=== PATIENT | female | born 1975 | race African-American/Black ===

== ENCOUNTER 2016-05-11 15:27 | Emergency (ER) | payer MEDICARE, MEDICAID ==
[~2016-05-11] VITALS: Ht 175.3 cm; Wt 72.6 kg
[~2016-05-11 15:27] MED LIST changes: -TYLENOL EXTRA500 MG ORAL
[2016-05-11] MEDS ORDERED: Ketorolac 60mg Inj IM ONE (15:45)
[2016-05-11] MEDS ORDERED: Metoclopramide 10mg/2ml Inj IM ONE (15:45)
--- NOTE | 2016-05-11 16:22 | Emergency Room Report ---
History of Present Illness General Chief Complaint: Headache Present Illness HPI 40 YO female Pt. presents to the ED c/o progressive WALSH throbbing in nature to the left frontal area 9/10 in severity, denies photophobia, nausea, vomiting. Increased anxiety due to pain. Pt states hx of migraines in the past, and that this pain is similar. Denies being prescribed medications for migraines. Pt states she has a hx of anxiety and is usually prescribed xanax. Pt. denies taking medication for her pain today.Pt reports that she has hx of seizures. last seizure was the end of March, pt. just had her neurology f/u this am where EEG was performed just prior to onset of WALSH. Pt. states she wont have her results back for a few days. Denies neck pain/stiffness or recent illness/URI. denies dysuria, frequency, or , pt states she had hysterectomy. Denies CP, Palpitations, LOC, AMS, dizziness, Changes in Vision, Sensation, paresthesias, or a sudden severe headache. Allergies: Coded Allergies: No Known Allergies (Verified , 12/27/06) Patient History Past Medical History: see triage record Past Surgical History: none Pertinent Family History: none Last Menstrual Period: HYSTERECTOMY Now: No Immunizations: UTD Reviewed Nursing Documentation: PMH: Agreed, PSxH: Agreed Nursing Documentation-PMH Past Medical History: No History, Except For Hx Cardiac Problems: No - MENINGITIS, HYSTERECTOMY History Of Psychiatric Problem: Yes - ANXIETY Hx Seizures: Yes Review of Systems All Other Systems: negative except mentioned in HPI Physical Exam Vital Signs Date Time Temp Pulse Resp B/P Pulse Ox O2 Delivery O2 Flow Rate FiO2 05/11/16 15:25 98.1 89 16 110/70 99 Sp02 EP Interpretation: reviewed, normal General Appearance: no apparent distress, alert, GCS 15, non-toxic Head: normocephalic, atraumatic Eyes: bilateral eye PERRL, bilateral eye normal inspection ENT: hearing grossly normal, normal pharynx, no angioedema, normal voice Neck: full range of motion, no meningismus, no bony tend, supple/symm/no masses Respiratory: chest non-tender, lungs clear, normal breath sounds, speaking full sentences Cardiovascular #1: regular rate, rhythm, no edema, normal capillary refill Rectal: deferred Genitourinary: normal inspection, no CVA tenderness Musculoskeletal: back normal, gait/station normal, normal range of motion, non- tender, no calf tenderness Neurologic: alert, oriented x3, responsive, motor strength/tone normal, sensory intact, cerebellar normal, normal gait, speech normal, other - negative hoffmans, no pronator drift, no facial droop. Psychiatric: judgement/insight normal, memory normal, mood/affect normal, no suicidal/homicidal ideation Reflexes: 4+ bicep (R), 4+ bicep (L), 4+ tricep (R), 4+ tricep (L), 4+ knee (R) , 4+ knee (L) Skin: normal color, no rash, warm/dry, well hydrated Lymphatic: no adenopathy Medical Decision Making PA Attestation Dr. Salvador is my supervising Physician whom patient management has been discussed with. Diagnostic Impression: Primary Impression: Headache Qualified Codes: R51 - Headache ER Course Pt. presents to the ED c/o progressive WALSH throbbing in nature to the left frontal area, denies photophobia, nausea, vomiting. Increased anxiety due to pain. Pt states hx of migraines in the past, and that this pain is similar. - has hx of seizures. last seizure was the end of march, pt. just had her neurology f/u this am where EEG was performed just prior to onset of WALSH. Ddx considered but are not limited to migraine, SAH, Psedudo motor Cerebri, Mass lesion, Cluster WALSH, Tension WALSH, Post lumbar puncture WALSH. Vital signs: are WNL, pt. is afebrile H&PE are most consistent with headache, unknown cause, not intractable. no evidence of focal neurological deficit, WALSH was progressive onset and similar in nature to WALSH's in the past. ORDERS: none required at this time. ED INTERVENTIONS: - IM Reglan -IM Toradol -0.5 Ativan -upon re-evaluation, pt. states her pain has subsided with above interventions. -d/w pt. need for follow up with her neurologist, and to discuss recent visit to ED for WALSH. DISCHARGE: At this time pt. is stable for d/c to home. Will provide printed patient care instructions, and any necessary prescriptions. Care plan and follow up instructions have been discussed with the patient prior to discharge. Last Vital Signs Date Time Temp Pulse Resp B/P Pulse Ox O2 Delivery O2 Flow Rate FiO2 1/17/17 15:25 98.1 89 16 110/70 99 Disposition: HOME, SELF-CARE Condition: Stable Scripts Acetaminophen* (TYLENOL EXTRA STRENGTH*) 500 Mg Tablet 500 MG ORAL Q8H, #30 TAB 0 Refills Prov: Vita Martinez 05/11/16 Patient Instructions: General Headache Without Cause Additional Instructions: Take medications as directed. Follow up with PCP and Neurologist in 3-5 days Return sooner to ED if new symptoms occur, or current symptoms become worse. Vita Martinez May 11, 2016 16:22
[2016-05-11] MEDS ORDERED: LORazepam 0.5mg tab ORAL ONE (16:30)
[2016-05-11] MEDS ORDERED: TYLENOL EXTRA500 MG ORAL (16:37)
[2016-05-11 16:58] VITALS: BP 110/70
--- NOTE | 2016-05-11 20:37 | Electroencephalogram ---
DATE OF PROCEDURE: 05/11/2016 ELECTROENCEPHALOGRAM REPORT HISTORY: The patient is a 40-year-old female with a history of transient unresponsiveness treated with Xanax and Prozac. TECHNIQUE: EEG was done using 18 electrodes placed scalp to scalp, scalp to ear montages according to 10/20 International System. In most wakeful portions of recording after stimulation, background consists of a medium to high voltage 9 to 10 cycles per second alpha activity with significantly override it fast or low voltage beta activities. In the drowsy state, there was poorly defined low voltage theta activities ranging 5 to 7 hertz, more evident in the posterior and occipital region. Diffusely override it by fast or low voltage beta activities bilaterally. Photic stimulation from 3 to 32 hertz was no significant changes. Hyperventilation was obtained, resulting in slow-wave prevalence in the posterior and occipital region bilaterally. IMPRESSION: Normal awake and stage 1 sleep electroencephalogram with photic stimulation and hyperventilation. COMMENT: 1. Absence of paroxysmal event on a single recording does not rule out seizure disorder. 2. Prevalence of her beta activities may represent a normal version of electroencephalogram in the presence of benzodiazepines. Dudley Reyes M.D. DR: AVA JOB#: [id number] CC:
== END 2016-05-11 17:00 | disposition home or self-care (01) ==
LOC: EDBD 15:27 → EMR 15:55
DX: R51 Headache (principal); F41.9 Anxiety disorder, unspecified; Z86.61 Personal history of infections of the central nervous system; Z90.710 Acquired absence of both cervix and uterus
CPT/HCPCS: 96372; 99283; J2765

== ENCOUNTER → 2016-05-11 | Outpatient (CLI) | payer MEDICARE, MEDICAID ==
[~2016-05-11] MED LIST: CYCLOBENZAPRINE10 MG ORAL; IBUPROFEN600 MG ORAL; NORCO 5-325 TA1 EAC1 ORAL; PROZAC10 MG ORAL; TYLENOL EXTRA500 MG ORAL; XANAX1 MG ORAL
== END | disposition home or self-care (01) ==
LOC: CAR 08:20
DX: G40.909 Epilepsy, unspecified, not intractable, without status epilepticus (principal)
CPT/HCPCS: 95819

== ENCOUNTER 2018-10-24 14:02 | Emergency (ER) | payer MEDICAID, MEDICARE, OTHER ==
[~2018-10-24] VITALS: Ht 175.3 cm; Wt 116.1 kg
[~2018-10-24 14:02] MED LIST changes: +TYLENOL EXTRA500 MG ORAL
[2018-10-24] MEDS ORDERED: SEROQUEL100 MG ORAL (14:09)
[2018-10-24] MEDS ORDERED: Tylenol #3 tab (300mg/30mg) ORAL ONE (14:45)
[2018-10-24] MEDS ORDERED: Augmentin 875mg Tab ORAL ONE (14:45)
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
[2018-10-24] MEDS ORDERED: IBUPROFEN600 MG ORAL (14:56)
[2018-10-24] MEDS ORDERED: AUGMENTIN 875-1 EAC1 ORAL (14:56)
[2018-10-24 15:05] VITALS: BP_SYST 131; BP_SYST 134; BP_DIAS 71; BP_DIAS 74
--- NOTE | 2018-10-24 15:20 | Diagnostic Imaging Report ---
Indication: left hand pain. Comparison: None Findings: 3 views of the left hand were obtained. Normal alignment is demonstrated. No acute fractures, erosions, or periosteal reaction are seen. Soft tissues are unremarkable. Impression: No acute findings.
== END 2018-10-24 15:05 | disposition home or self-care (01) ==
LOC: EMR 14:40
DX: S63.635A Sprain of interphalangeal joint of left ring finger, initial encounter (principal); S61.255A Open bite of left ring finger without damage to nail, initial encounter; Y09 Assault by unspecified means; Z90.710 Acquired absence of both cervix and uterus; E78.00 Pure hypercholesterolemia, unspecified; G40.909 Epilepsy, unspecified, not intractable, without status epilepticus
CPT/HCPCS: 29130; 99283

== ENCOUNTER 2018-11-27 11:20 | Emergency (ER) | payer MEDICARE ==
[~2018-11-27] VITALS: Ht 172.7 cm; Wt 115.7 kg
[~2018-11-27 11:20] MED LIST changes: +AUGMENTIN 875-1 EAC1 ORAL; +SEROQUEL100 MG ORAL
[2018-11-27 11:24] VITALS: BP 126/78
--- NOTE | 2018-11-27 11:26 | NUR ---
ED Nurse Note: pt was brought in by ambulance from home c/o headache blurred vision on the right eye. pt stated she slipped and fall 5 days ago and hit her head. pt able to answer all questions. pt stated she is a little bit dizzy. with vital signs within normal limit. will continue to monitor.
--- NOTE | 2018-11-27 11:50 | Emergency Room Report ---
History of Present Illness General Chief Complaint: Headache Source: Patient, EMS Present Illness HPI Patient is a 43-year-old female presented after persistent headache after a fall. Patient reports having fallen naproxen 5 days ago. She states she slipped on a wet floor. She is reports having hit the back of her head. She denies any vomiting since the injury. She denies any neck pain. She reports having prior history of bronchitis. She denies taking any blood thinners. She denies any weakness to her extremities. She denies other locations of injury other than her head. Patient was brought in by EMS. Allergies: Coded Allergies: MORPHINE (Unverified Allergy, Unknown, 11/27/18) Patient History Past Medical History: see triage record, psych hx Last Menstrual Period: 2003 Now: No Reviewed Nursing Documentation: PMH: Agreed; PSxH: Agreed Nursing Documentation-PMH Hx Cardiac Problems: No - MENINGITIS, HYSTERECTOMY, high cholesterol History Of Psychiatric Problem: Yes - anxiety Hx Seizures: Yes Review of Systems All Other Systems: negative except mentioned in HPI Physical Exam Vital Signs Date Time Temp Pulse Resp B/P (MAP) Pulse Ox O2 Delivery O2 Flow Rate FiO2 11/27/18 11:19 98.2 75 16 126/78 (94) 98 Room Air General Appearance: alert, GCS 15, obese, Chronically Ill Head: other - occipital soft tissue swelling Eyes: bilateral eye PERRL ENT: hearing grossly normal, normal voice Neck: full range of motion Respiratory: wheezing Cardiovascular #1: normal peripheral pulses, regular rate, rhythm, no edema Gastrointestinal: normal inspection, soft Musculoskeletal: normal inspection, back normal, digits/nails normal Neurologic: normal inspection, alert, oriented x3, responsive, hog driver III-XII nml as tested Psychiatric: normal inspection Medical Decision Making Diagnostic Impression: Primary Impression: Head contusion Additional Impression: Head injury ER Course Patient presented for head injury. Differential diagnosis include included but was not limited to fracture, subdural hematoma, contusion, head injury among others. CT imaging of the head was ordered to the patient's recent fall. CT showed atrophic changes without evident intracranial hemorrhage or fracture. Patient appears to be stable for discharge. She was given medications for discomfort. She advised to follow-up with her primary care physician for recheck. She is to return if worse. Labs Test 11/27/18 11:57 White Blood Count 3.9 K/UL (4.8-10.8) Red Blood Count 4.35 M/UL (4.20-5.40) Hemoglobin 12.3 G/DL (12.0-16.0) Hematocrit 39.7 % (37.0-47.0) Mean Corpuscular Volume 91 FL (80-99) Mean Corpuscular Hemoglobin 28.1 PG (27.0-31.0) Mean Corpuscular Hemoglobin Concent 30.8 G/DL (32.0-36.0) Red Cell Distribution Width 13.0 % (11.6-14.8) Platelet Count 210 K/UL (150-450) Mean Platelet Volume 7.2 FL (6.5-10.1) Neutrophils (%) (Auto) 49.7 % (45.0-75.0) Lymphocytes (%) (Auto) 36.2 % (20.0-45.0) Monocytes (%) (Auto) 12.8 % (1.0-10.0) Eosinophils (%) (Auto) 0.3 % (0.0-3.0) Basophils (%) (Auto) 1.0 % (0.0-2.0) Prothrombin Time 10.7 SEC (9.30-11.50) Prothromb Time International Ratio 1.0 (0.9-1.1) Activated Partial Thromboplast Time 31 SEC (23-33) Urine Color Yellow Urine Appearance Clear Urine pH 6 (4.5-8.0) Urine Specific Lando 1.020 (1.005-1.035) Urine Protein 2+ (NEGATIVE) Urine Glucose (UA) Negative (NEGATIVE) Urine Ketones 1+ (NEGATIVE) Urine Blood 4+ (NEGATIVE) Urine Nitrite Negative (NEGATIVE) Urine Bilirubin Negative (NEGATIVE) Urine Urobilinogen Normal MG/DL (0.0-1.0) Urine Leukocyte Esterase 2+ (NEGATIVE) Urine RBC 2-4 /HPF (0 - 2) Urine WBC 2-4 /HPF (0 - 2) Urine Squamous Epithelial Cells Few /LPF (NONE/OCC) Urine Bacteria Few /HPF (NONE) Urine HCG, Qualitative Negative (NEGATIVE) Sodium Level 140 MMOL/L (136-145) Potassium Level 4.2 MMOL/L (3.5-5.1) Chloride Level 105 MMOL/L (98-107) Carbon Dioxide Level 25 MMOL/L (21-32) Anion Gap 11 mmol/L (5-15) Blood Urea Nitrogen 16 mg/dL (7-18) Creatinine 0.8 MG/DL (0.55-1.30) Estimat Glomerular Filtration Rate > 60 mL/min (>60) Glucose Level 101 MG/DL (74-106) Calcium Level 9.3 MG/DL (8.5-10.1) Total Bilirubin 0.4 MG/DL (0.2-1.0) Aspartate Amino Transf (AST/SGOT) 63 U/L (15-37) Alanine Aminotransferase (ALT/SGPT) 63 U/L (12-78) Alkaline Phosphatase 105 U/L (46-116) Total Protein 8.3 G/DL (6.4-8.2) Albumin 4.2 G/DL (3.4-5.0) Globulin 4.1 g/dL Albumin/Globulin Ratio 1.0 (1.0-2.7) Last Vital Signs Date Time Temp Pulse Resp B/P (MAP) Pulse Ox O2 Delivery O2 Flow Rate FiO2 11/27/18 11:24 98.2 75 16 126/78 98 Room Air Status: improved Disposition: HOME, SELF-CARE Condition: Stable Scripts Acetaminophen* (ACETAMINOPHEN EXTRA STRENGTH*) 500 Mg Tablet 500 MG ORAL Q8H PRN for Fever/Headache/Mild Pain, #30 TAB Prov: Marquis Salvador MD 11/27/18 Marquis Salvador MD Nov 27, 2018 11:50
[2018-11-27] MEDS ORDERED: Albuterol/Ipratropium 3ml neb HHN ONE (12:00)
[2018-11-27 12:05] LABS: APPEARANCE,URINE CLEAR; BILIRUBIN, URINE NEGATIVE (NEGATIVE); EOSINOPHILS % (AUTO) 0.3 % (0.0-3.0); GLUCOSE, URINE (UA) NEGATIVE (NEGATIVE); HEMATOCRIT 39.7 % (37.0-47.0); HEMOGLOBIN 12.3 G/DL (12.0-16.0); KETONES,URINE 1+ (NEGATIVE); LEUKOCYTE ESTERASE ,URINE 2+ (NEGATIVE); LYMPHOCYTES % (AUTO) 36.2 % (20.0-45.0); MEAN CORPUSCULAR VOLUME 91 FL (80-99); MONOCYTES % (AUTO) 12.8 % (1.0-10.0); NEUTROPHILS % (AUTO) 49.7 % (45.0-75.0); NITRITE,URINE NEGATIVE (NEGATIVE); PH,URINE 6 (4.5-8.0); PLATELET COUNT 210 K/UL (150-450); PROTEIN,URINE 2+ (NEGATIVE); RED BLOOD COUNT 4.35 M/UL (4.20-5.40); UROBILINOGEN,URINE NORMAL MG/DL (0.0-1.0); WHITE BLOOD COUNT 3.9 K/UL (4.8-10.8)
--- NOTE | 2018-11-27 12:06 | NUR ---
ED Nurse Note: Applied ice pack on the posterior head and keep patient NPO until CT results as ordered. Patient is receiving breathing tx.
[2018-11-27 12:14] LABS: COLOR,URINE YELLOW
--- NOTE | 2018-11-27 12:15 | NUR ---
ED Nurse Note: patient is taken down to CT scan
[2018-11-27 12:17] LABS: ANION GAP 11 mmol/L (5-15); BLOOD UREA NITROGEN 16 mg/dL (7-18); CALCIUM 9.3 MG/DL (8.5-10.1); CARBON DIOXIDE 25 MMOL/L (21-32); CHLORIDE 105 MMOL/L (98-107); CREATININE 0.8 MG/DL (0.55-1.30); POTASSIUM 4.2 MMOL/L (3.5-5.1); SODIUM 140 MMOL/L (136-145)
[2018-11-27 12:22] LABS: ALANINE AMINOTRANSFERASE 63 U/L (12-78); ALBUMIN 4.2 G/DL (3.4-5.0); ALKALINE PHOSPHATASE 105 U/L (46-116); ASPARTATE AMINO TRANSFERASE 63 U/L (15-37); BILIRUBIN,TOTAL 0.4 MG/DL (0.2-1.0)
--- NOTE | 2018-11-27 12:38 | NUR ---
ED Nurse Note: patient came back from CT
[2018-11-27] MEDS ORDERED: ACETAMINOPHEN500 M3 ORAL (12:44)
[2018-11-27] MEDS ORDERED: Acetaminophen 500mg (ES) tab ORAL ONE (12:45)
--- NOTE | 2018-11-27 13:12 | Diagnostic Imaging Report ---
Indication: Headache Technique: Contiguous 5 mm thick transaxial imaging of the head obtained in a Siemens Sensation [address] scanner. Soft tissue and bone windows generated. Automatic Exposure Control was utilized. Total Dose length Product (DLP): 1485.[address] Dose Index Volume (CTDIvol): 70.38 mGy Comparison: none Findings: The size and configuration of the cortical sulci, basal cisterns, and ventricles are within normal limits for age. There is no mass effect, midline shift, or edema identified. There is no evidence of acute hemorrhage or abnormal intra-axial or extra-axial fluid collections. The bones and soft tissues are unremarkable. There is mucosal thickening within the visualized paranasal sinuses consistent with mild sinusitis. Impression: No mass effect, edema or acute bleed. Sinusitis The CT scanner at [facility] is accredited by the [employer] and the scans are performed using dose optimization techniques as appropriate to a performed exam including Automatic Exposure control.
[2018-11-27 13:29] VITALS: BP 126/78
--- NOTE | 2018-11-27 13:29 | NUR ---
ER DISCHARGE NOTE: Patient is cleared to be discharged per CLAIRE CARRILLO , pt is aox4, on room air, with stable vital signs. pt was given dc and prescription instructions, pt was able to verbalize understanding, pt id band and iv site removed without complications. pt is able to ambulate with steady gait. pt took all belongings.
== END 2018-11-27 13:29 | disposition home or self-care (01) ==
LOC: EDBD 11:20 → EMR 12:17
DX: S00.93XA Contusion of unspecified part of head, initial encounter (principal); S09.90XA Unspecified injury of head, initial encounter; E66.9 Obesity, unspecified; Z90.710 Acquired absence of both cervix and uterus; F41.9 Anxiety disorder, unspecified; E78.00 Pure hypercholesterolemia, unspecified; G40.909 Epilepsy, unspecified, not intractable, without status epilepticus; Z88.6 Allergy status to analgesic agent; W01.0XXA Fall on same level from slipping, tripping and stumbling without subsequent striking against object, initial encounter; Y92.9 Unspecified place or not applicable
CPT/HCPCS: 36415; 70450; 80053; 81001; 81025; 85025; 85610; 85730; 94640; 94664; 96374; 99284; J0780; J7620

== ENCOUNTER 2019-06-25 19:16 | Emergency (ER) | payer MEDICARE ==
[~2019-06-25] VITALS: Ht 172.7 cm; Wt 113.4 kg
[~2019-06-25 19:16] MED LIST changes: +ACETAMINOPHEN500 M3 ORAL; +PREDNISONE20 MG ORAL
[2019-06-25 19:33] VITALS: BP 123/77
--- NOTE | 2019-06-25 19:34 | NUR ---
ER Nurse Note: Pt brought in by ambulnace from home c/o lower back pain since 20 days. Per EMS, pt fell in her kitchen 20 days ago and pain has been getting worse. Pt stated she has an appoinement to her PCP on 06/27 but pain is severe. Pt able to walk; urine provided. Will continue to [facility]. Addendum: 06/25/19 at 1945 by BRONWYN ER Nurse Note: Pt stated she fell in her bathtub on the 06/10. Pt stated her lower back is swollen and has 10/10. Pt has a referal to see a PT but has not gone yet.
--- NOTE | 2019-06-25 19:58 | Emergency Room Report ---
History of Present Illness General Chief Complaint: Lower Back Pain or Injury Present Illness HPI Patient is a 39-year-old female presents after increased low back pain. Patient reports having recent fall approximately 2 weeks prior to arrival. She had been reportedly seeing physical therapy and had prior history of back pain in the past. She states she was try to get of the tub when she fell onto her buttocks and subsequently had increased pain to the area. She had been taking ibuprofen. Denies any loss of consciousness. Allergies: Coded Allergies: MORPHINE (Unverified Allergy, Unknown, 11/27/18) PENICILLINS (Verified Allergy, Unknown, 04/23/19) Uncoded Allergies: MORPHIME (Allergy, Unknown, 06/25/19) PCN (Allergy, Unknown, 06/25/19) Patient History Past Medical History: see triage record Reviewed Nursing Documentation: PMH: Agreed; PSxH: Agreed Nursing Documentation-PMH Hx Asthma: Yes Hx Seizures: Yes Review of Systems All Other Systems: negative except mentioned in HPI Physical Exam Vital Signs Date Time Temp Pulse Resp B/P (MAP) Pulse Ox O2 Delivery O2 Flow Rate FiO2 06/25/19 19:11 98.2 87 19 123/77 (92) 100 Sp02 EP Interpretation: reviewed, normal General Appearance: normal inspection, well appearing, no apparent distress, alert, GCS 15, non-toxic Head: atraumatic ENT: normal ENT inspection, hearing grossly normal, normal voice Neck: normal inspection, full range of motion, supple, no bony tend Respiratory: normal inspection, lungs clear, normal breath sounds, no respiratory distress, no retraction, no wheezing Cardiovascular #1: regular rate, rhythm, no edema Gastrointestinal: normal inspection, normal bowel sounds, non tender, soft, no guarding, no hernia Genitourinary: no CVA tenderness Musculoskeletal: normal inspection, back normal, normal range of motion Neurologic: alert, motor strength/tone normal, airworthiness safety inspector III-XII nml as tested, responsive, speech normal, normal inspection Psychiatric: normal inspection, judgement/insight normal, mood/affect normal Medical Decision Making Diagnostic Impression: Primary Impression: Chronic pain Additional Impression: Low back pain ER Course Patient presented for low back pain. Differential diagnosis includes not limited to fracture, contusion, herniated disc among others. X-ray imaging was ordered given the patient's recent trauma. She had multiple prior visits for various complaints of pain. Patient was given prescription for medications for symptomatic treatment. X-ray imaging read by radiology showed no evidence of acute fracture or malalignment. The patient is advised to follow up with primary care doctor in 1-2 days. Patient is advised to return if any worsening condition or if any changes in status that are concerning. This report is dictated with [employer] offbearer software which may occasionally lead to discrepancies related to use of this software. Labs Test 06/25/19 19:35 Urine Color Pale yellow Urine Appearance Clear Urine pH 7 (4.5-8.0) Urine Specific Ridge 1.010 (1.005-1.035) Urine Protein Negative (NEGATIVE) Urine Glucose (UA) Negative (NEGATIVE) Urine Ketones Negative (NEGATIVE) Urine Blood Negative (NEGATIVE) Urine Nitrite Negative (NEGATIVE) Urine Bilirubin Negative (NEGATIVE) Urine Urobilinogen Normal MG/DL (0.0-1.0) Urine Leukocyte Esterase Negative (NEGATIVE) Urine HCG, Qualitative Negative (NEGATIVE) Last Vital Signs Date Time Temp Pulse Resp B/P (MAP) Pulse Ox O2 Delivery O2 Flow Rate FiO2 06/25/19 19:33 98.2 83 19 123/77 100 Status: improved Disposition: HOME, SELF-CARE Condition: Stable Scripts Methocarbamol* (ROBAXIN-500*) 500 Mg Tablet 500 MG ORAL TID PRN for For Pain, #15 TAB 0 Refills Prov: Marquis Salvador MD 06/25/19 Marquis Salvador MD Jun 25, 2019 19:58
[2019-06-25] MEDS ORDERED: Ketorolac 30mg Inj IM ONE (20:00)
[2019-06-25 20:23] LABS: APPEARANCE,URINE CLEAR; BILIRUBIN, URINE NEGATIVE (NEGATIVE); COLOR,URINE PALE YELLOW; GLUCOSE, URINE (UA) NEGATIVE (NEGATIVE); KETONES,URINE NEGATIVE (NEGATIVE); LEUKOCYTE ESTERASE ,URINE NEGATIVE (NEGATIVE); NITRITE,URINE NEGATIVE (NEGATIVE); PH,URINE 7 (4.5-8.0); PROTEIN,URINE NEGATIVE (NEGATIVE); UROBILINOGEN,URINE NORMAL MG/DL (0.0-1.0)
[2019-06-25] MEDS ORDERED: ROBAXIN-500MG ORAL (20:23)
[2019-06-25 21:00] VITALS: BP 126/74
--- NOTE | 2019-06-25 21:00 | NUR ---
ED Nurse Note: All orders completed per ERMD orders. Pt cleared by health care Provider for discharge. DC instructions/prescription was given and explained to pt and verbalized understanding of teachings. Instructed pt to follow up with primary care physcian within one week. All medical deviecs such as ID band removed. Pt is AAO x4, ambulatory and left with all personal belongings.
--- NOTE | 2019-06-26 12:25 | Diagnostic Imaging Report ---
Indication: Back pain Comparison: None Findings: 3 views of the lumbar spine were obtained. No acute fracture or malalignment is identified. Vertebral body heights and disk spaces are well maintained. Posterior elements are unremarkable. Impression: No acute findings.
== END 2019-06-25 21:00 | disposition home or self-care (01) ==
LOC: EDBD 19:16 → EMR 19:25
DX: M54.5 Low back pain (principal); Z88.6 Allergy status to analgesic agent; Z88.0 Allergy status to penicillin
CPT/HCPCS: 72020; 81003; 81025; 96372; 99283; J1885

== ENCOUNTER 2019-08-05 17:52 | Emergency (ER) | payer MEDICARE ==
[~2019-08-05] VITALS: Ht 175.3 cm; Wt 113.4 kg
[~2019-08-05 17:52] MED LIST changes: +ROBAXIN-500MG ORAL
--- NOTE | 2019-08-05 17:52 | NUR ---
ED Nurse Note: Pt brought in by [id number] for behavioral complaint. Per EMS report pt feels depressed during holidays. pt also reports bodyaches with nausea and fever last night. pt is afebrile at this time.
[2019-08-05 17:55] VITALS: BP 120/75
--- NOTE | 2019-08-05 18:12 | NUR ---
ED Nurse Note: blood and urine sample sent down to lab
--- NOTE | 2019-08-05 18:15 | NUR ---
ED Nurse Note: pt's belongiongs in locker #3
--- NOTE | 2019-08-05 18:21 | NUR ---
ED Nurse Note: cxr being done at bedside
[2019-08-05 18:22] LABS: BASOPHILS % (AUTO) 0.7 % (0.0-2.0); EOSINOPHILS % (AUTO) 0.2 % (0.0-3.0); HEMATOCRIT 44.8 % (37.0-47.0); LYMPHOCYTES % (AUTO) 40.1 % (20.0-45.0); MEAN CORPUSCULAR VOLUME 92 FL (80-99); MONOCYTES % (AUTO) 5.6 % (1.0-10.0); NEUTROPHILS % (AUTO) 53.4 % (45.0-75.0); PLATELET COUNT 272 K/UL (150-450); RED BLOOD COUNT 4.85 M/UL (4.20-5.40); RED CELL DISTRIBUTION WIDTH 14.7 % (11.6-14.8); WHITE BLOOD COUNT 6.3 K/UL (4.8-10.8)
--- NOTE | 2019-08-05 18:26 | NUR ---
ED Nurse Note: pt is talkative, does not appear to be withdrawn. will continue to monitor.
--- NOTE | 2019-08-05 18:29 | Emergency Room Report ---
History of Present Illness General Chief Complaint: Behavioral Complaint Source: Medical Record, EMS Present Illness HPI 43 YO Female presents to the ED c/o running out of her psychiatric medications cold-turkey at home and unable to fill them until the . Pt. reports she began having SI with idea to hurt herself with a hatchet. Pt. reports one PSA in 1994 where she OD'd on Xanax. She reports one previous psychiatric hospitalization that was voluntary at [facility] in 1995. Pt. reports recent drug use last week using cocaine. She reports hx of MS and is stating she has 6/ 10 in severity pain/tenderness in the left hip/thigh. She reports recently having URI symptoms with cough that her PCP evaluated her over the phone and rx' d her Promethazine w. Codeine which resolved her symptoms. Pt. reports cough has not returned. She denies CP, Fevers, Chills, N/V/C/D. Denies recent travel. Denies contact with persons who have tested positive for or are under investigation/quarantine for COVID-19. She denies hallucinations. She reports she takes Seroquel and Lexapro and ran out of both 4 days ago. She denies SOB, palpitations, Paresthesias, dizziness, WALSH, or weakness. Allergies: Coded Allergies: MORPHINE (Unverified Allergy, Unknown, 11/27/18) PENICILLINS (Verified Allergy, Unknown, 04/23/19) Uncoded Allergies: MORPHIME (Allergy, Unknown, 06/25/19) PCN (Allergy, Unknown, 06/25/19) COVID-19 Screening Contact w/high risk pt: No Recent Travel to affected area: No Experienced COVID-19 symptoms?: Yes COVID-19 symptoms experienced: Fever (T>100.4F or >38C) Patient History Past Medical History: psych hx - Depression, 1 PSA, other - MS Past Surgical History: none Pertinent Family History: none Now: No Reviewed Nursing Documentation: PMH: Agreed; PSxH: Agreed Nursing Documentation-PMH Hx Hypertension: Yes Hx Asthma: Yes Hx Seizures: Yes Review of Systems All Other Systems: negative except mentioned in HPI Physical Exam Vital Signs Date Time Temp Pulse Resp B/P (MAP) Pulse Ox O2 Delivery O2 Flow Rate FiO2 08/05/19 17:48 98.1 81 18 114/78 (90) 97 Room Air Sp02 EP Interpretation: reviewed, normal General Appearance: no apparent distress, alert, GCS 15, non-toxic Head: normocephalic, atraumatic Eyes: bilateral eye normal inspection, bilateral eye PERRL ENT: hearing grossly normal, normal voice Neck: full range of motion Respiratory: chest non-tender, lungs clear, normal breath sounds, no respiratory distress, no accessory muscle use, no wheezing, speaking full sentences Cardiovascular #1: regular rate, rhythm, no edema, normal capillary refill Gastrointestinal: normal bowel sounds, non tender, soft Musculoskeletal: back normal, normal range of motion, gait/station normal, tender - TTP To the left thigh, no erythema or warmth, FROM of hip. Neurologic: alert, motor strength/tone normal, oriented x3, sensory intact, responsive, speech normal Psychiatric: judgement/insight normal, memory normal, depressed affect - with SI. Suicide Risk Assessment: Suicidal Ideation: Yes Had intent to initiate attempt: Yes Pt's plan for suicide attempt: Yes Has means to complete attempt: Yes Skin: normal color, normal inspection Medical Decision Making PA Attestation Dr. Carcamo is my supervising Physician whom patient management has been discussed with. Diagnostic Impression: Primary Impression: Behavioral disorder ER Course Pt. presents to the ED with s/sx c/w URI in the setting of a local COVID-19 Outbreak. - This PT. was c/o Signs and Symptoms that are c/w possible COVID-19 infection, therefore treated as such. - Full PPE for airborne/droplet isolation (booties, Gown, doubled nitrile gloves, N95 Mask covered by Surgical mask w. face shield, and hair net) was donned prior to pt. interaction. 43 YO Female presents to the ED c/o running out of her psychiatric medications cold-turkey at home and unable to fill them until the . Pt. reports she began having SI with idea to hurt herself with a hatchet. Pt. reports one PSA in 1994 where she OD'd on Xanax. She reports one previous psychiatric hospitalization that was voluntary at [facility] in 1995. Pt. reports recent drug use last week using cocaine. She reports hx of MS and is stating she has 6/ 10 in severity pain/tenderness in the left hip/thigh. She reports recently having URI symptoms with cough that her PCP evaluated her over the phone and rx' d her Promethazine w. Codeine which resolved her symptoms. Pt. reports cough has not returned. She denies CP, Fevers, Chills, N/V/C/D. Denies recent travel. Denies contact with persons who have tested positive for or are under investigation/quarantine for COVID-19. She denies hallucinations. She reports she takes Seroquel and Lexapro and ran out of both 4 days ago. She denies SOB, palpitations, Paresthesias, dizziness, WALSH, or weakness. Ddx considered but are not limited to OD, SI/HI, psychosis, UTI, intoxication Vital signs: are WNL, pt. is afebrile H&PE are most consistent with behavioral/mental health issue ORDERS: -CBC, CMP: WNL -UA: negative for infection see results attached. -Urine Hcg: Negative -UDS: POSITIVE FOR BENZO and COCAINE -Salicylates and Acetaminophen - no acute intoxication. -Serum ETOH: 195 CXR: WNL ED INTERVENTIONS: - 10mg Lexapro PO DISPOSITION: PT. signed out to on-coming Physician pending medical clearance Labs Test 08/05/19 18:15 White Blood Count 6.3 K/UL (4.8-10.8) Red Blood Count 4.85 M/UL (4.20-5.40) Hemoglobin 14.0 G/DL (12.0-16.0) Hematocrit 44.8 % (37.0-47.0) Mean Corpuscular Volume 92 FL (80-99) Mean Corpuscular Hemoglobin 28.8 PG (27.0-31.0) Mean Corpuscular Hemoglobin Concent 31.2 G/DL (32.0-36.0) Red Cell Distribution Width 14.7 % (11.6-14.8) Platelet Count 272 K/UL (150-450) Mean Platelet Volume 7.3 FL (6.5-10.1) Neutrophils (%) (Auto) 53.4 % (45.0-75.0) Lymphocytes (%) (Auto) 40.1 % (20.0-45.0) Monocytes (%) (Auto) 5.6 % (1.0-10.0) Eosinophils (%) (Auto) 0.2 % (0.0-3.0) Basophils (%) (Auto) 0.7 % (0.0-2.0) Urine HCG, Qualitative Negative (NEGATIVE) Sodium Level 142 MMOL/L (136-145) Potassium Level 4.1 MMOL/L (3.5-5.1) Chloride Level 104 MMOL/L (98-107) Carbon Dioxide Level 28 MMOL/L (21-32) Anion Gap 10 mmol/L (5-15) Blood Urea Nitrogen 15 mg/dL (7-18) Creatinine 1.0 MG/DL (0.55-1.30) Estimat Glomerular Filtration Rate > 60 mL/min (>60) Glucose Level 100 MG/DL (74-106) Calcium Level 9.9 MG/DL (8.5-10.1) Total Bilirubin 0.2 MG/DL (0.2-1.0) Aspartate Amino Transf (AST/SGOT) 26 U/L (15-37) Alanine Aminotransferase (ALT/SGPT) 32 U/L (12-78) Alkaline Phosphatase 108 U/L (46-116) Total Protein 8.6 G/DL (6.4-8.2) Albumin 4.5 G/DL (3.4-5.0) Globulin 4.1 g/dL Albumin/Globulin Ratio 1.1 (1.0-2.7) Salicylates Level 3.5 ug/mL (2.8-20) Urine Opiates Screen Negative (NEGATIVE) Acetaminophen Level < 2 MCG/ML (10-30) Urine Barbiturates Screen Negative (NEGATIVE) Phencyclidine (PCP) Screen Negative (NEGATIVE) Urine Amphetamines Screen Negative (NEGATIVE) Urine Benzodiazepines Screen Positive (NEGATIVE) Urine Cocaine Screen Positive (NEGATIVE) Urine Marijuana (THC) Screen Negative (NEGATIVE) Serum Alcohol 195 mg/dL Chest X-Ray Diagnostic Results Chest X-Ray Diagnostic Results : Chest X-Ray Ordered: Yes # of Views/Limited/Complete: 1 View Indication: Shortness of Breath EP Interpretation: Yes PA Xray: Interpretation reviewed, by supervising MD, and agrees with findings. Interpretation: no consolidation, no effusion, no pneumothorax, no acute cardiopulmonary disease Impression: No acute disease Electronically Signed by: jaqueline luo PA-C Last Vital Signs Date Time Temp Pulse Resp B/P (MAP) Pulse Ox O2 Delivery O2 Flow Rate FiO2 08/05/19 17:48 98.1 81 18 114/78 (90) 97 Room Air Signed Out To: Dr. Gresham Referrals: [facility],REFERRING (PCP) Jaqueline Luo Aug 05, 2019 18:29
[2019-08-05 18:38] LABS: ANION GAP 10 mmol/L (5-15); BLOOD UREA NITROGEN 15 mg/dL (7-18); CALCIUM 9.9 MG/DL (8.5-10.1); CARBON DIOXIDE 28 MMOL/L (21-32); CHLORIDE 104 MMOL/L (98-107); POTASSIUM 4.1 MMOL/L (3.5-5.1); SODIUM 142 MMOL/L (136-145)
[2019-08-05 18:42] LABS: ALANINE AMINOTRANSFERASE 32 U/L (12-78); ALBUMIN 4.5 G/DL (3.4-5.0); ALBUMIN/GLOBULIN RATIO 1.1 (1.0-2.7); ALKALINE PHOSPHATASE 108 U/L (46-116); ASPARTATE AMINO TRANSFERASE 26 U/L (15-37); BILIRUBIN,TOTAL 0.2 MG/DL (0.2-1.0)
--- NOTE | 2019-08-05 18:43 | NUR ---
ED Nurse Note: Lexapro given. Pt stated 'feels better'. Pt is calm and cooperative.
--- NOTE | 2019-08-05 18:51 | NUR ---
ED Nurse Note: FLU antigen sent to lab
--- NOTE | 2019-08-05 18:54 | Diagnostic Imaging Report ---
EXAM: XR Chest, 1 View CLINICAL HISTORY: PAIN TECHNIQUE: Frontal view of the chest. COMPARISON: No relevant prior studies available. FINDINGS: Lungs: Reduced lung volumes. No confluent consolidation. Pleural space: Unremarkable. No pneumothorax. Heart: Large cardiac silhouette Mediastinum: Unremarkable. Bones/joints: No acute fracture. IMPRESSION: Reduced lung volumes. No confluent consolidation.
[2019-08-05 19:10] VITALS: BP 126/73
--- NOTE | 2019-08-05 19:10 | NUR ---
ED Nurse Note: pt resting in bed, VSS no ss of distress noted.
[2019-08-05 19:14] LABS: APPEARANCE,URINE CLEAR; BILIRUBIN, URINE NEGATIVE (NEGATIVE); COLOR,URINE PALE YELLOW; GLUCOSE, URINE (UA) NEGATIVE (NEGATIVE); KETONES,URINE NEGATIVE (NEGATIVE); LEUKOCYTE ESTERASE ,URINE NEGATIVE (NEGATIVE); NITRITE,URINE NEGATIVE (NEGATIVE); PH,URINE 7 (4.5-8.0); PROTEIN,URINE NEGATIVE (NEGATIVE); UROBILINOGEN,URINE NORMAL MG/DL (0.0-1.0)
--- NOTE | 2019-08-05 19:25 | NUR ---
ED Nurse Note: pt stated that she was having pain in left hip for last several weeks, 7/10 pain. ERMD notified. Npt denies injury to area. Pt states pain happened idiopathically and all of a sudden. No redness, swelling, bruising to area. No lacerations, scarring, or abrasions. awaiting further orders.
[2019-08-05] MEDS ORDERED: Acetaminophen 500mg (ES) tab ORAL ONE (19:30)
--- NOTE | 2019-08-05 19:31 | NUR ---
ED Nurse Note: all medications administered, pt tolerated well. no ss of distress noted. no adverse reactions noted.
--- NOTE | 2019-08-05 21:35 | NUR ---
ED Nurse Note: ERMD at bedside
[2019-08-05] MEDS ORDERED: SEROQUEL100 MG ORAL (21:49)
[2019-08-05] MEDS ORDERED: LEXAPRO20 MG ORAL (21:49)
[2019-08-05 21:58] VITALS: BP 132/83
--- NOTE | 2019-08-05 21:58 | NUR ---
ER DISCHARGE NOTE: Patient is cleared to be discharged home per ERMD, pt is aox4, on room air, with stable vital signs. pt was given dc and prescription instructions, pt was able to verbalize understanding, pt id band and iv site removed without complications. pt is able to ambulate with steady gait. pt took all belongings.
== END 2019-08-05 21:58 | disposition home or self-care (01) ==
LOC: EDBD 17:52 → EMR 18:10
DX: R46.89 Other symptoms and signs involving appearance and behavior (principal); Z91.5 Personal history of self-harm; Z88.0 Allergy status to penicillin; Z88.6 Allergy status to analgesic agent; R50.9 Fever, unspecified; I10 Essential (primary) hypertension; F32.9 Major depressive disorder, single episode, unspecified; G40.909 Epilepsy, unspecified, not intractable, without status epilepticus
CPT/HCPCS: 36415; 71045; 80053; 80307; 81003; 81025; 85025; 86710; 99284; G0480

== ENCOUNTER 2019-08-19 11:17 | Emergency (ER) | payer MEDICARE ==
[~2019-08-19] VITALS: Ht 175.3 cm; Wt 117.9 kg
[~2019-08-19 11:17] MED LIST changes: +LEXAPRO20 MG ORAL
[2019-08-19 11:20] VITALS: BP 145/90
--- NOTE | 2019-08-19 11:20 | NUR ---
ED Nurse Note: Pt brought in by ambulance from home d/t left hip pain that has increased over two months. Pt repots the pain today being unbearable 02/01. Pt reports a fall out of bed 2 months ago that caused the pain. Respirations even and unlabored on room air. Vitals stable as documented.
--- NOTE | 2019-08-19 11:31 | Emergency Room Report ---
History of Present Illness General Chief Complaint: Pain Source: Patient, Medical Record Present Illness HPI Patient presents with complaints of left hip pain reports that about 2 months ago she had a fall she has had some discomfort since then however more acutely now she has increased pain Denies any more recent fall denies any fevers or chills pain is worse with bearing weight denies any fevers or chills denies any abdominal pain denies any dysuria frequency Allergies: Coded Allergies: MORPHINE (Unverified Allergy, Unknown, 11/27/18) PENICILLINS (Verified Allergy, Unknown, 04/23/19) Uncoded Allergies: MORPHIME (Allergy, Unknown, 06/25/19) PCN (Allergy, Unknown, 06/25/19) COVID-19 Screening Contact w/high risk pt: No Recent Travel to affected area: No Experienced COVID-19 symptoms?: No COVID-19 symptoms experienced: Fever (T>100.4F or >38C) Patient History Past Medical History: see triage record Now: No Reviewed Nursing Documentation: PMH: Agreed; PSxH: Agreed Nursing Documentation-PMH Hx Hypertension: Yes Hx Asthma: Yes Hx Seizures: Yes Review of Systems All Other Systems: negative except mentioned in HPI Physical Exam Vital Signs Date Time Temp Pulse Resp B/P (MAP) Pulse Ox O2 Delivery O2 Flow Rate FiO2 08/19/19 11:11 99.5 99 16 148/88 (108) 98 Room Air Sp02 EP Interpretation: reviewed, normal General Appearance: well appearing, no apparent distress Head: normocephalic, atraumatic Eyes: bilateral eye PERRL, bilateral eye EOMI ENT: hearing grossly normal, normal pharynx, TMs + canals normal, uvula midline Neck: full range of motion, supple, no meningismus, no bony tend Respiratory: lungs clear, normal breath sounds, no rhonchi, no respiratory distress, no retraction, no accessory muscle use Cardiovascular #1: normal peripheral pulses, regular rate, rhythm, no edema, no gallop, no JVD, no murmur Gastrointestinal: normal bowel sounds, non tender, soft, no mass, no organomegaly, non-distended, no guarding, no hernia, no pulsatile mass, no rebound Genitourinary: no CVA tenderness Musculoskeletal: other - Patient has some discomfort with flexion of the left hip however sensory is intact, no obvious swelling or erythema at the lateral hip Neurologic: alert, oriented x3, sensory intact, responsive Psychiatric: mood/affect normal Skin: no rash Lymphatic: normal inspection, no adenopathy Medical Decision Making Diagnostic Impression: Primary Impression: Hip pain ER Course Given the history and presentation multiple differentials and consideration including but not limited to septic joint, occult fracture musculoskeletal sprain strain Patient is hemodynamically and neurologically intact there is no obvious swelling or erythema my suspicion for infectious process is low X-ray imaging is done which does not show any acute process patient does feel significantly improved after intervention and at this time is stable for initial conservative outpatient trial/ Other X-Ray Diagnostic Results Other X-Ray Diagnostic Results : X-Ray ordered: Left hip # of Views/Limited Vs Complete: 3 View Indication: Pain EP Interpretation: Yes Interpretation: no dislocation, no soft tissue swelling, no fractures Impression: No acute disease Electronically Signed by: Ta Argueta DO Last Vital Signs Date Time Temp Pulse Resp B/P (MAP) Pulse Ox O2 Delivery O2 Flow Rate FiO2 08/19/19 11:11 99.5 99 16 148/88 (108) 98 Room Air Status: improved Disposition: HOME, SELF-CARE Condition: Improved Scripts Ibuprofen* (MOTRIN*) 600 Mg Tablet 600 MG ORAL Q8H PRN for FOR PAIN, #20 TAB 0 Refills Prov: Ta Argueta DO 08/19/19 Additional Instructions: Patient is provided with the discharge instructions notified to follow up with primary doctor in the next 2-3 days otherwise return to the er with any worsening symptoms. Please note that this report is being documented using [employer] technology. This can lead to erroneous entry secondary to incorrect interpretation by the dictating instrument. Ta Argueta DO Aug 19, 2019 11:31
--- NOTE | 2019-08-19 11:36 | NUR ---
ED Nurse Note: per ED MD, pt had negative test 10 days ago, so okay to give toradol and do xray.
[2019-08-19] MEDS ORDERED: Ketorolac 60mg Inj IM ONE (11:45)
--- NOTE | 2019-08-19 11:47 | NUR ---
ED Nurse Note: Xray @ bedside
--- NOTE | 2019-08-19 12:16 | Diagnostic Imaging Report ---
EXAM: XR Left Hip With Pelvis When Performed, 2 or 3 Views CLINICAL HISTORY: PAIN TECHNIQUE: Two or three views of the left hip with pelvis when performed. COMPARISON: None FINDINGS: Examination is limited by overlying soft tissue density. Bones/joints: No displaced fracture or dislocation identified. Degenerative changes of the hips. Soft tissues: Normal. IMPRESSION: No displaced fracture or dislocation identified.
[2019-08-19] MEDS ORDERED: IBUPROFEN600 M1 ORAL (12:58)
[2019-08-19 13:04] VITALS: BP 141/88
--- NOTE | 2019-08-19 13:04 | NUR ---
ER DISCHARGE NOTE: Patient is cleared to be discharged per ERMD, pt is aox4, on room air, with stable vital signs as documented. pt was given dc and prescription instructions, pt was able to verbalize understanding, pt id band removed. pt is able to ambulate with steady gait using cane. pt took all belongings.
== END 2019-08-19 13:04 | disposition home or self-care (01) ==
LOC: EDBD 11:17 → EMR 11:34
DX: M25.552 Pain in left hip (principal); Z88.6 Allergy status to analgesic agent; Z88.0 Allergy status to penicillin; I10 Essential (primary) hypertension; G40.909 Epilepsy, unspecified, not intractable, without status epilepticus
CPT/HCPCS: 73502; 96372; 99283